=== PATIENT | female | born 1955 | race Caucasian/White ===

== ENCOUNTER → 2018-05-10 | Outpatient (CLI) | payer OTHER ==
--- NOTE | 2018-05-14 08:54 | RAD ---
DATE: 05/10/2018 1:30 PM EXAM: DIGITAL SCREEN BILAT W/CAD HISTORY: routine screening evaluation. COMPARISON: 10/22/2009 Bilateral full field craniocaudal and mediolateral oblique images were obtained using digital technique. This study was interpreted with the benefit of Computerized Aided Detection (CAD ). Breast Density: The breast parenchyma is dense, which could reduce the sensitivity of mammography. Breast parenchyma level density D. FINDINGS: No suspicious masses, microcalcifications or architectural distortion is present to suggest malignancy in either breast. The visualized axillae are unremarkable. IMPRESSION: No mammographic evidence of malignancy. BI-RADS CATEGORY: 1 NEGATIVE RECOMMENDED FOLLOW-UP: 12M 12 MONTH FOLLOW-UP Annual screening mammography is recommended, unless clinically indicated sooner based on symptoms or change in physical exam. PQRS compliance statement: Patient information was entered into a reminder system with a target due date for the next mammogram. Mammography is a sensitive method for finding small breast cancers, but it does not detect them all and is not a substitute for careful clinical examination. A negative mammogram does not negate a clinically suspicious finding and should not result in delay in biopsying a clinically suspicious abnormality. "Our facility is accredited by the [employer] Mammography Program." MTDD
== END | disposition home or self-care (01) ==
LOC: MAMMO 11:33
PROVIDERS: ATTEND Physician Assistant
DX: Z12.31 Encounter for screening mammogram for malignant neoplasm of breast (principal)
CPT/HCPCS: 77067